=== PATIENT | male | born 1985 | race Caucasian/White ===

== ENCOUNTER 2019-08-06 11:44 | Emergency (ER) | payer SELFPAY ==
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
[2019-08-06 11:51] VITALS: BP 122/84
--- NOTE | 2019-08-06 12:10 | Emergency Department Report ---
ED Extremity Problem HPI - General Chief complaint: Extremity Injury, Lower Stated complaint: RT ANKLE PAIN Time Seen by Provider: 08/06/19 11:46 Source: patient, family Mode of arrival: Ambulatory Limitations: Language Barrier - History of Present Illness Initial comments: Patient is a 33-year-old male presents emergency room with complaints of right a nkle pain that began 2-3 months ago. Patient states that he had ankle surgery 8 years ago at [facility] and had screws placed. He denies any fall or injury. He denies any numbness or weakness. Denies been ambulatory. Denies any other past medical history or allergies to medications. Ecuadorean interpretation by his significant other - Related Data Previous Rx's Medication Instructions Recorded Last Taken Type Naproxen [Naprosyn TAB] 500 mg PO BID PRN #14 tablet 08/06/19 Unknown Rx Allergies Allergy/AdvReac Type Severity Reaction Status Date / Time No Known Allergies Allergy Verified 08/06/19 11:51 ED Review of Systems ROS: Stated complaint: RT ANKLE PAIN Other details as noted in HPI Comment: All other systems reviewed and negative ED Past Medical Hx - Social History Smoking Status: Never Smoker Substance Use Type: Alcohol - Medications Home Medications: Home Medications Medication Instructions Recorded Confirmed Last Taken Type Naproxen [Naprosyn TAB] 500 mg PO BID PRN #14 tablet 08/06/19 Unknown Rx ED Physical Exam - General Limitations: Language Barrier General appearance: alert, in no apparent distress - Head Head exam: Present: atraumatic, normocephalic - Eye Eye exam: Present: normal appearance - ENT ENT exam: Present: mucous membranes moist - Extremities Exam Extremities exam: Present: other (no TTP of the right ankle, slightly decreased ROM of the right ankle secondary to internal fixation, there is a screw undern eath the skin present just below the lateral malleolus, no edema present, no erythema, no pus drainage, no increased warmth, neurovascularly intact, no obvious joint laxity) - Neurological Exam Neurological exam: Present: alert, oriented X3 - Psychiatric Psychiatric exam: Present: normal affect, normal mood - Skin Skin exam: Present: warm, dry, intact ED Course Vital Signs 08/06/19 11:48 Temperature 97.7 F Pulse Rate 74 Respiratory 16 Rate Blood Pressure 122/84 O2 Sat by Pulse 99 Oximetry ED Medical Decision Making - Radiology Data Radiology results: report reviewed Right ankle-3 views INDICATION: Post surgical nailing protrusion with pain. COMPARISON: None. 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 There is also mild perimetallic lucency about the distal portion of the intramedullary monique worrisome for loosening. Finally, the screw through the distal monique protrudes along the lateral aspect of the hindfoot with little overlying skin/soft tissue present. No acute osseous abnormality identified. Signer Name: Preston Machuca MD Signed: 08/06/2019 12:25 PM Workstation Name: [id number] Transcribed By: JW Dictated By: Preston Machuca MD Electronically Authenticated By: Preston Machuca MD Signed Date/Time: 08/06/19 1225 - Medical Decision Making Patient is a 33-year-old male presents emergency room with complaints of right ankle pain that began 2-3 months ago. Patient states that he had ankle surgery 8 years ago at [facility] and had screws placed. He denies any fall or injury. He denies any numbness or weakness. Denies been ambulatory. Denies any other past medical history or allergies to medications. Ecuadorean interpretation by his significant other VSS. on exam: no TTP of the right ankle, slightly decreased ROM of the right ankle secondary to internal fixation, there is a screw underneath the skin present just below the lateral malleolus, no edema present, no erythema, no pus drainage, no increased warmth, neurovascularly intact, no obvious joint laxity. 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 There is also mild perimetallic lucency about the distal portion of the intramedullary monique worrisome for loosening. Finally, the screw through the distal monique protrudes along the lateral aspect of the hindfoot with little overlying skin/soft tissue present. No acute osseous abnormality identified. discussed XR findings with pt, Answered all questions, patient given the report of x-ray. Advised patient to keep the area clean and dry and to use Neosporin ointment over the area. There is no signs of infection currently. discussed the importance of follow up with an orthopedic, advised for him to be seen by the orthopedic who did his surgery, but if not provided pt with local orthopedic doctor. Patient given prescription for naproxen. advised pt to Please follow-up with an orthopedic doctor in the next 2-3 days. take medication as prescribed as needed. May use ice packs, rest, elevation of the leg. apply neosporin ointment to the ankle where the screw is loose. return to the emergency room for any new or worsening symptoms. - Differential Diagnosis strain, sprain, fx, dislocation, hardware complication, infection Critical care attestation.: If time is entered above; I have spent that time in minutes in the direct care of this critically ill patient, excluding procedure time. ED Disposition Clinical Impression: Loosening of orthopedic screw Right ankle pain Qualifiers: Chronicity: acute Qualified Code(s): M25.571 - Pain in right ankle and joints of right foot Disposition: DC- TO HOME OR SELFCARE Is pt being admited?: No Does the pt Need Aspirin: No Condition: Stable Instructions: RICE Therapy (ED) Additional Instructions: Please follow-up with an orthopedic doctor in the next 2-3 days. take medication as prescribed as needed. May use ice packs, rest, elevation of the leg. apply neosporin ointment to the ankle where the screw is loose. return to the emergency room for any new or worsening symptoms. Prescriptions: Naproxen [Naprosyn TAB] 500 mg PO BID PRN #14 tablet PRN Reason: pain Referrals: YAZAN MCCARTY MD [Staff Physician] - 2-3 Days Time of Disposition: 12:35 Print Language: SYRIAN
--- NOTE | 2019-08-06 12:29 | XRay Report ---
Right ankle-3 views INDICATION: Post surgical nailing protrusion with pain. COMPARISON: None. IMPRESSION: There is a statically locked hindfoot arthrodesis transfixing the tibia, talus, and calc aneus. 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 There is also mild perimetallic lucency about the distal portion of the intrame dullary monique worrisome for loosening. Finally, the screw through the distal monique protrudes along the la teral aspect of the hindfoot with little overlying skin/soft tissue present. No acute osseous abnorma lity identified. Signer Name: Preston Machuca MD Signed: 08/06/2019 12:25 PM Workstation Name: [id number]
== END 2019-08-06 12:47 | disposition home or self-care (01) ==
LOC: ED 11:44
DX: T84.038A Mechanical loosening of other internal prosthetic joint, initial encounter (principal); M25.571 Pain in right ankle and joints of right foot; Z79.899 Other long term (current) drug therapy
CPT/HCPCS: 99283